=== PATIENT | female | born 1965 | race Caucasian/White ===

== ENCOUNTER 2016-08-20 13:39 | Emergency (ER) | payer MEDICARE, MEDICAID ==
[~2016-08-20] VITALS: Ht 157.5 cm; Wt 72.0 kg
[2016-08-20 13:45] VITALS: Ht 157.5 cm; Wt 72.0 kg
[2016-08-20] MEDS ORDERED: GABA-329 PO (14:16)
[2016-08-20] MEDS ORDERED: OMEP-122 PO (14:16)
[2016-08-20] MEDS ORDERED: TIZA4TAB4 PO (14:16)
[2016-08-20] MEDS ORDERED: ASPI-914 PO (14:16)
[2016-08-20] MEDS ORDERED: IBUP-1724 PO (14:16)
[2016-08-20] MEDS ORDERED: FLUO20TA29 PO (14:17)
[2016-08-20] MEDS ORDERED: TRAM50TA4 PO (14:17)
[2016-08-20] MEDS ORDERED: CELE-85 PO (14:17)
[2016-08-20] MEDS ORDERED: QUET100T69 PO (14:17)
--- NOTE | 2016-08-20 14:18 | ERPDOC ---
Departure Disposition Decision Date: Aug 20, 2016 Disposition Decision Time: 14:22 (GANESH CARBONE APRN) Disposition: 01 DISCHARGED HOME, SELF-CARE Impression Impression (GANESH CARBONE APRN) Impression: Primary Impression: Chronic back pain Back pain location: low back pain Back pain laterality: left Sciatica presence: with sciatica Sciatica laterality: sciatica of left side Qualified Codes: G89.29 - Other chronic pain; M54.42 - Lumbago with sciatica, left side Severity: Moderate (GANESH CARBONE APRN) Condition: Stable Seen By: Mid-level only (GANESH CARBONE APRN) Patient Instructions: Chronic Back Pain (ED) Problems/Meds/Labs Reviewed?: Yes Medications reviewed and manag: Yes (GANESH CARBONE APRN) Additional Instructions: I do want you to follow up with Dr Whitfield this week for further management of your back pain. May use the Skelaxin and the [place] that you have at home for pain. If any new issues/concerns then please return to ER. Follow up care ordered?: Yes Mental Status: Alert (GANESH CARBONE APRN) Scripts Metaxalone (Skelaxin) 800 Mg Tablet 800 MG PO TID, #15 TAB 0 Refills Take 1 (800 mg) tablet, by mouth, 3 times a day. Prov: GANESH CARBONE APRN 08/20/16 HPI - Back Pain General Chief Complaint: Back Pain or Injury Stated Complaint: BACK PAIN Time Seen by Provider: 13:57 Source: patient Exam Limitations: no limitations (GANESH CARBONE APRN) Time Seen by Provider: 13:57 (YOVANA LEMONS MD) HPI - Back Pain Initial Comments She has a history of low back pain and is being worked up by Dr Whitfield, a spinal surgeon in [place]. He has done an MRI for Soumya in 03/2017 which did show some nerve root impingement but no other abnormalities. She has done PT and steroid epidural injections that she had last done 6 days ago. Has not been getting any relief from these interventions. She does take Tramadol for the pain but it is not helping. Does have some [place] at home but has not been taking it. She feels like the pain has gotten worse over the last few weeks. Did contact Dr Whitfield's office this morning but he is out of clinic. She presents to ER today for management of her pain. She did drive herself here. States that she does not like needles at all and would like a Rx of something to get her through until she can get in to see Dr Whitfield. Pain is in the lower back and radiates down her left leg and buttock. Denies any new injury or fall. She did have an xray done last week and it was normal. 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) Review of Systems Constitutional Constitutional: DENIES: chills, dizziness, fatigue, fever, weakness (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, 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) Cardiovascular Cardiac: DENIES: chest pain, orthopnea Rhythm/Rate: DENIES: irregular beat, palpitations Vascular: DENIES: pedal edema, unilateral swelling (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,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) Pulmonary Respiratory: DENIES: cough, dyspnea, sputum, tachypnea (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,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) GI Upper Abdomen: DENIES: nausea, pain, vomiting Lower Abdomen: DENIES: constipation, diarrhea, pain (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,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) Integumentary Skin: DENIES: rash (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,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) Neurological General: DENIES: headache, numbness, tingling, weakness (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,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) Physical Exam General General Nourishment: well nourished, well developed, appears stated age, no acute distress, adult General Body Habitus: well groomed (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,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) Vitals and Pain First Documented Vital Signs Date Time Temp Pulse Resp B/P Pulse Ox O2 Delivery O2 Flow Rate FiO2 08/20/16 13:45 97.4 97 16 186/91 97 Room Air (YOVANA LEMONS MD) Vitals and Pain Weight: Kilograms: 72.000 Height (feet): 5 Height (inches): 2.00 Triage Pain Scale: (GANESH CARBONE APRN) RN VS reviewed by Provider: Yes (GANESH CARBONE APRN) Normal Exams: Neck: Full range of motion, without adenopathy, JVD, bruits or thyromegaly Chest/Resp: Clear all velasco, with good airflow, and symmetry bilaterally CV: Regular rate and rhythm, without murmur or gallop, Pulses 2+ all extremities, capillary refill, <2 seconds all ext., no pedal edema noted Abdomen: Bowel sounds positive, soft, non-tender, non-distended, no hepatosplenomegaly, masses or bruits noted Lymphatic: No lymphadenopathy, or lymphedema noted Integumentary: No rashes, hives, or bruising noted Neurologic: Patient is alert, and oriented Psychiatric: Patient exhibits, appropriate attention, emotion and affect (GANESH CARBONE APRN) Musculoskeletal (brief) Musculoskeletal Brief: FOUND: tenderness (Mild TTP along the lumbar spine and down onto the left lower back musculature and down onto the left buttock. Senstation is intact to BLE with strenght of 5/5. Is able to get her legs up onto the bed easily. ) (GANESH CARBONE APRN) Integumentary (brief) Integumentary Brief: FOUND: dry, pink, warm, NOT FOUND: rash (GANESH CARBONE APRN) Differential Diagnoses Considering: Compression Fracture, Fracture, Lumbar Sprain, Lumbar Strain, UTI (GANESH CARBONE APRN) Progress Progress Progress She does not want any injections today and did drive herself to the ER. She does have [place] at home that she can take for pain. Will have her use that and also have her try some Skelaxin. I did talk with her that she does need to make sure she is following up with Dr. Whitfield for repeat MRI if needed for further management of the back pain as this is chronic in nature. (GANESH CARBONE APRN) Progress Patient's history and exam discussed with TUMBLING BARREL PAINTER. Patient is wanting another MRI and further workup -- informed by nurse that the neurosurgeon and her other doctors will evaluate that. She did not have a ride, so no sedating agents could be given here. Agree with ER course and plan of care as outlined. (YOVANA LEMONS MD) GANESH CARBONE APRN Aug 20, 2016 14:18 YOVANA LEMONS MD Aug 20, 2016 16:30 YOVANA LEMONS MD Aug 20, 2016 16:30
[2016-08-20] MEDS ORDERED: PAIN RELIEF TOP (14:19)
[2016-08-20] MEDS ORDERED: META800T91 PO (14:24)
[2016-08-20 14:45] VITALS: BP 152/72; PULSE 97; RESP 16; TEMP 97.4; O2SAT 97
== END 2016-08-20 14:45 | disposition home or self-care (01) ==
LOC: ED 13:39
DX: M54.42 Lumbago with sciatica, left side (principal); G89.29 Other chronic pain